=== PATIENT | female | born 1935 | race Caucasian/White ===

== ENCOUNTER 2017-02-14 13:17 | Emergency (ER) | payer MEDICARE, BC ==
[2017-02-14] MEDS ORDERED: ONDANSETRON HCL 4 MG/2 ML SOL IV ONE (13:54)
[2017-02-14] MEDS ORDERED: SODIUM CHLORIDE 0.9% 500 ML SOL IV SCH (14:00)
[2017-02-14] MEDS ORDERED: ONDANSETRON HCL 4 MG/2 ML SOL ONE (14:03)
[2017-02-14 14:24] LABS: BASOPHILS % (AUTO) 3 % (0-3); EOSINOPHILS % (AUTO) 2 % (0-9); HEMATOCRIT 26 % (35-47); MEAN CORPUSCULAR HGB CONC 33.7 gm/dl (32.0-36.0); MEAN CORPUSCULAR VOLUME 93 fL (81-99); MONOCYTES % (AUTO) 8.5 % (0-12); NEUTROPHILS % (AUTO) 41.1 % (37-80)
[2017-02-14 14:32] LABS: CALCIUM 8.8 mg/dl (8.5-10.1); POTASSIUM 4.1 mMol/L (3.5-5.1)
[2017-02-14 14:50] LABS: BILIRUBIN,URINE 1+ (NEGATIVE); COLOR,URINE Dark yellow; GLUCOSE, URINE (UA) NEGATIVE (NEGATIVE); KETONES,URINE 1+ (NEGATIVE); LEUKOCYTE ESTERASE ,URINE 1+ (NEGATIVE); NITRATE,URINE NEGATIVE (NEGATIVE); OCCULT BLOOD,URINE 2+ (NEG-TRACE); PH,URINE 5.5
[2017-02-14 15:05] LABS: APPEARANCE,URINE CLOUDY; ICTOTEST,URINE NEGATIVE (NEGATIVE)
[2017-02-14 15:19] VITALS: RESP 16
[2017-02-14] MEDS ORDERED: SODIUM CHLORIDE 0.9% 500 ML SOL IV ONE (15:48)
[2017-02-14 15:54] VITALS: TEMP 99.1
[2017-02-14 16:10] VITALS: O2SAT 95
[2017-02-14 17:18] VITALS: BP 116/54; PULSE 96
== END 2017-02-14 17:05 | disposition home or self-care (01) | DRG 392 ==
LOC: ED 13:17
DX: K52.9 Noninfective gastroenteritis and colitis, unspecified (principal); E86.0 Dehydration; J20.9 Acute bronchitis, unspecified
CPT/HCPCS: 36415; 71010; 80053; 81001; 85025; 87040; 87804; 99285; J2405

== ENCOUNTER 2017-05-08 18:05 | Emergency (ER) | payer MEDICARE, BC ==
[2017-05-08 18:20] VITALS: TEMP 98
[2017-05-08] MEDS ORDERED: ACETAMINOPHEN 500 MG 500 MG TAB PO ONE (18:40)
[2017-05-08] MEDS ORDERED: ALBUTEROL/IPRATROPIUM 1 VIAL SOL ONE ×2 (18:40→19:19)
[2017-05-08] MEDS ORDERED: PREDNISONE 20 MG TAB PO ONE (18:40)
[2017-05-08] MEDS: ALBUTEROL/IPRATROPIUM 1 VIAL SOL INH PRN ×2 (18:43→19:21)
[2017-05-08] MEDS ORDERED: PREDNISONE 20 MG TAB ONE (18:44)
[2017-05-08] MEDS ORDERED: ACETAMINOPHEN 500 MG 500 MG TAB ONE (18:44)
[2017-05-08 18:53] LABS: BASOPHILS % (AUTO) 2 % (0-3); EOSINOPHILS % (AUTO) 1 % (0-9); HEMATOCRIT 26 % (35-47); MEAN CORPUSCULAR HGB CONC 32.3 gm/dl (32.0-36.0); MEAN CORPUSCULAR VOLUME 95 fL (81-99); MONOCYTES % (AUTO) 7.2 % (0-12); NEUTROPHILS % (AUTO) 29.7 % (37-80)
[2017-05-08 19:02] LABS: CALCIUM 8.2 mg/dl (8.5-10.1); POTASSIUM 3.7 mMol/L (3.5-5.1)
[2017-05-08 19:24] VITALS: RESP 24
[2017-05-08 19:38] VITALS: PULSE 93; O2SAT 96
[2017-05-08] MEDS ORDERED: SOLUMEDROL 125 MG/2 ML 125 MG/2 ML PDS IM ONE (19:42)
[2017-05-08] MEDS ORDERED: SOLUMEDROL 125 MG/2 ML 125 MG/2 ML PDS ONE (19:43)
[2017-05-09 00:01] VITALS: BP 109/56
== END 2017-05-08 20:47 | disposition home or self-care (01) | DRG 195 ==
LOC: ED 18:05
DX: J11.00 Influenza due to unidentified influenza virus with unspecified type of pneumonia (principal); D69.6 Thrombocytopenia, unspecified; J18.9 Pneumonia, unspecified organism
CPT/HCPCS: 71046; 80048; 85025; 87804; 99284; J2930; J7620; A9270-GY

== ENCOUNTER 2017-09-20 12:10 | Emergency (ER) | payer MEDICARE, BC ==
[2017-09-20 12:31] VITALS: RESP 16
[2017-09-20 13:12] LABS: CALCIUM 8.4 mg/dl (8.5-10.1); CARBON DIOXIDE 30.5 mEq/L (21-32); CREATININE 0.71 mg/dl (0.60-1.00)
[2017-09-20 13:18] LABS: HEMATOCRIT 24 % (35-47); HEMOGLOBIN 7.8 gm/dl (12.0-15.5); MEAN CORPUSCULAR HEMOGLOBIN 30.2 pg (27.0-32.0); MEAN CORPUSCULAR VOLUME 91 fL (81-99)
[2017-09-20 13:47] LABS: ANISOCYTOSIS SLIGHT AMT; BAND NEUTROPHILS % (MANUAL) 4 %; BASOPHILS % (MANUAL) 1 % (0-3); EOSINOPHILS % (MANUAL) 0 % (0-9); LYMPHOCYTES % (MANUAL) 54 % (10-50); MONOCYTES % (MANUAL) 7 % (0-12); NEUTROPHILS % (MANUAL) 34 % (37-80); NUCLEATED RED BLOOD CELLS 9 /100WBCS
[2017-09-20 14:07] VITALS: BP 160/63; PULSE 86; TEMP 98.1; O2SAT 99
== END 2017-09-20 14:48 | disposition home or self-care (01) | DRG 556 ==
LOC: ED 12:10
DX: M25.512 Pain in left shoulder (principal); M25.522 Pain in left elbow
CPT/HCPCS: 73030; 73070; 80048; 85007; 85027; 99282; 99283; A6232